=== PATIENT | female | born 1930 | race Caucasian/White ===

== ENCOUNTER 2019-08-13 19:28 | Emergency (ER) | payer MEDICARE ==
[2019-08-13 20:30] VITALS: BP 139/69
--- NOTE | 2019-08-13 20:47 | ED ---
Upper Extremity Pain - HPI Summary HPI Summary: 89 yr old female with the complaint of right hand and wrist pain after fall yesterday. No LOC. She tripped over a chair. She has some mild redness to the dorsum of the right hand. No Bruise. No limit to ROM. Pain is mild. No other complaints. - History of Current Complaint Chief Complaint: UCUpperExtremity Stated Complaint: S/P FALL 08/12 RT HAND INJURY Time Seen by Provider: 08/13/19 20:19 - Allergies/Home Medications Allergies/Adverse Reactions: Allergies Allergy/AdvReac Type Severity Reaction Status Date / Time No Known Allergies Allergy Verified 08/13/19 20:19 Home Medications: Home Medications Acetaminophen TAB* [Tylenol TAB*] 650 mg PO Q4H PRN 08/13/19 [History Confirmed 08/13/19] Donepezil HCl [Aricept] 10 mg PO BEDTIME 08/13/19 [History Confirmed 08/13/19] Lisinopril TAB* [Prinivil TAB*] 10 mg PO DAILY 08/13/19 [History Confirmed 08/13] Metoprolol Tartrate TAB* [Lopressor TAB*] 25 mg PO DAILY 08/13/19 [History Confirmed 08/13/19] Omeprazole 20 mg PO BEDTIME 08/13/19 [History Confirmed 08/13/19] Rosuvastatin Calcium 5 mg PO BEDTIME 08/13/19 [History Confirmed 08/13/19] Sertraline* [Zoloft*] 25 mg PO BEDTIME 08/13/19 [History Confirmed 08/13/19] PMH/Surg Hx/FS Hx/Imm Hx Cardiovascular History: Reports: Hx Hypertension - Surgical History Surgery Procedure, Year, and Place: [place]. Hysterectomy. Cholecystectomy Infectious Disease History: Yes Infectious Disease History: Reports: Hx Shingles Denies: Traveled Outside the [place] in Last 30 Days - Family History Known Family History: Positive: None - Social History Alcohol Use: Daily Substance Use Type: Reports: None Smoking Status (MU): Never Smoked Tobacco Review of Systems Constitutional: Negative Positive: Other - right hand pain after fall. All Other Systems Reviewed And Are Negative: Yes Physical Exam Triage Information Reviewed: Yes Vital Signs On Initial Exam: Initial Vitals Temp Pulse Resp BP Pulse Ox 98 F 76 16 139/69 100 08/13/19 20:25 08/13/19 20:25 08/13/19 20:25 08/13/19 20:25 08/13/19 20:25 Vital Signs Reviewed: Yes Appearance: Positive: Well-Appearing, No Pain Distress Skin: Positive: Warm, Other - mild erythema back of right hand. Head/Face: Positive: Normal Head/Face Inspection Eyes: Positive: EOMI ENT: Positive: Normal ENT inspection Neck: Positive: Nontender Respiratory/Lung Sounds: Positive: Clear to Auscultation, Breath Sounds Present Cardiovascular: Positive: RRR, Pulses are Symmetrical in both Upper and Lower Extremities Abdomen Description: Positive: Nontender Musculoskeletal: Positive: Strength/ROM Intact, Other - minimal tenderness over the right hand 3rd MP and metacarpal area. Mild erythema. No lacerations or abrasion. Normal ROM, open and close fingers. Neurological: Positive: Sensory/Motor Intact, Alert, Oriented to Person Place, Time, CN Intact II-III Psychiatric: Positive: Normal AVPU Assessment: Alert Procedures - Splinting Right Upper Extremity Location: right hand, wrist, forearm Hand-Made Type: orthoglass Splint: volar Pre-Proc Neuro Vasc Exam: normal Post-Proc Neuro Vasc Exam: normal Splint Applied by Provider: Shyam Nguyễn - Vital Signs Vital Signs Temp Pulse Resp BP Pulse Ox 08/13/19 20:25 98 F 76 16 139/69 100 - Laboratory Lab Statement: Any lab studies that have been ordered have been reviewed, and results considered in the medical decision making process. - Radiology wrist, hand right Radiology Interpretation Completed By: ED Physician - distal radius fx Course/Dx - Course Course Of Treatment: 89 yr old with possible distal radius fx, non displaced. Splinted by me, Follow with ortho matty. - Diagnoses Provider Diagnoses: Wrist fracture, right, Nondisplaced fracture Discharge ED - Sign-Out/Discharge Documenting (check all that apply): Patient Departure All imaging exams completed and their final reports reviewed: No - Discharge Plan Condition: Good Disposition: HOME Patient Education Materials: Wrist Fracture in Adults (ED), Hypertension (ED) Referrals: Bradley Mendez MD [Primary Care Provider] - 2 Days Sawyer Peterson MD [Medical Doctor] - 1 Day - Billing Disposition and Condition Condition: GOOD Disposition: Home
--- NOTE | 2019-08-14 13:57 | UC ---
- Progress Note Progress Note: xray report right hand / right wrist : IMPRESSION: 1. OSTEOPENIA. 2. OSTEOARTHRITIS. 3. CHONDROCALCINOSIS. 4. QUESTIONABLE NONDISPLACED FRACTURE OF THE DISTAL RADIAL METAPHYSIS. RECOMMEND CORRELATION WITH SITE OF PAIN. 5. THE DEGREE OF OSTEOPENIA MAY MAKE A NONDISPLACED FRACTURE RADIOGRAPHICALLY OCCULT. Course/Dx - Diagnoses Provider Diagnoses: Wrist fracture, right, Nondisplaced fracture Discharge ED - Sign-Out/Discharge Documenting (check all that apply): Patient Departure All imaging exams completed and their final reports reviewed: Yes - Discharge Plan Condition: Good Disposition: HOME Patient Education Materials: Wrist Fracture in Adults (ED), Hypertension (ED) Referrals: Sawyer Peterson MD [Medical Doctor] - 1 Day Bradley Mendez MD [Primary Care Provider] - 2 Days - Billing Disposition and Condition Condition: GOOD Disposition: Home
== END 2019-08-13 21:39 | disposition home or self-care (01) ==
LOC: UCCORT 19:28
DX: S62.101A Fracture of unspecified carpal bone, right wrist, initial encounter for closed fracture (principal); W19.XXXA Unspecified fall, initial encounter; Y92.9 Unspecified place or not applicable; M85.831 Other specified disorders of bone density and structure, right forearm; M19.031 Primary osteoarthritis, right wrist; M11.231 Other chondrocalcinosis, right wrist; I10 Essential (primary) hypertension; Z79.899 Other long term (current) drug therapy
CPT/HCPCS: 99201; G0463